=== PATIENT | male | born 1975 | race Caucasian/White ===

== ENCOUNTER → 2016-11-09 | Outpatient (CLI) | payer BC ==
--- NOTE | 2016-11-09 11:29 | CR ---
EXAMINATION: Two-view chest (PA and Lateral views). HISTORY: Hypertension. FINDINGS: The trachea is midline. The cardiomediastinal silhouette is within normal limits. No pulmonary infil trates, effusions or pneumothorax. There is mild left perihilar atelectasis. Osseous structures appear unremarkable. IMPRESSION: No acute cardiopulmonary process.
[2016-11-09 11:31] LABS: CHLORIDE,CL 105 mmol/L (98-110); SODIUM,NA 136 mmol/L (136-146)
== END ==
LOC: MW.CHIM 10:44
PROVIDERS: ATTEND Internal Medicine
DX: I10 Essential (primary) hypertension (principal); J44.9 Chronic obstructive pulmonary disease, unspecified
CPT/HCPCS: 36415; 71020; 80053; 80061; 83036; 84439; 84443; 85025; G0103

== ENCOUNTER 2017-12-23 09:14 | Emergency (ER) | payer BC ==
[2017-12-23] MEDS ORDERED: Ketorolac 60 MG/2 ML SDV IM ONE (09:25)
[2017-12-23] MEDS ORDERED: Cyclobenzaprine 10 MG Tab PO ONE (09:26)
--- NOTE | 2017-12-23 09:28 | EDM.PDOC ---
ED HPI GENERAL MEDICAL PROBLEM - General Chief Complaint: Back Pain or Injury Stated Complaint: HURT HIS BACK Time Seen by Provider: 12/23/17 09:19 Source of Information: Reports: Patient History Limitations: Reports: No Limitations - History of Present Illness INITIAL COMMENTS - FREE TEXT/NARRATIVE: History of present illness: []Patient was weaned off yesterday and felt a sudden pain with an audible pop in his lower back. He took Advil and ice to his back last night. He woke up with worse pain and difficulty moving. Patient denies any radiation of pain, numbness, tingling or urinary or fecal incontinence. Review of systems: As per history of present illness and below otherwise all systems reviewed and negative. Past medical history: As per history of present illness and as reviewed below otherwise noncontributory. Surgical history: As per history of present illness and as reviewed below otherwise noncontributory. Social history: No reported history of drug or alcohol abuse. Family history: As per history of present illness and as reviewed below otherwise noncontributory. Physical exam: General: Well developed, well nourished in NAD HEENT: Atraumatic, normocephalic, pupils reactive, negative for conjunctival pallor or scleral icterus, mucous membranes moist, throat clear, neck supple, nontender, trachea midline. Lungs: Clear to auscultation, breath sounds equal bilaterally, chest nontender. Heart: S1S2, regular, negative for clicks, rubs, or JVD. Abdomen: Soft, nondistended, nontender. Negative for masses or hepatosplenomegaly. Negative for costovertebral tenderness. Pelvis: Stable nontender. Genitourinary: Deferred. Rectal: Deferred. Extremities: Atraumatic, negative for cords or calf pain. Neurovascular unremarkable. Neuro: Awake, alert, oriented. Cranial nerves II through XII unremarkable. Cerebellum unremarkable. Motor and sensory unremarkable throughout. Exam nonfocal. Straight leg raise negative, reflexes intact. Diagnostics: [] Therapeutics: []Toradol, Flexeril, Dilaudid with no relief. IV morphine titrated to comfort given Impression: []Lumbar strain Plan: []Tramadol, Flexeril, ice pack follow-up with primary care return if symptoms worsen Definitive disposition and diagnosis as appropriate pending reevaluation and review of above. Back Pain Score (Numeric/FACES): 6 - Related Data Allergies Allergy/AdvReac Type Severity Reaction Status Date / Time No Known Allergies Allergy Verified 12/23/17 09:22 Home Meds: Home Meds Cyclobenzaprine [Flexeril] 10 mg PO BID PRN #12 tab 12/23/17 [Rx] Phentermine HCl 37.5 mg PO DAILY 12/23/17 [History] Valsartan 40 mg PO DAILY 12/23/17 [History] traMADol HCl [Tramadol HCl] 50 mg PO Q6H PRN #16 tablet 12/23/17 [Rx] ED ROS GENERAL - Review of Systems Review Of Systems: See Below (See history of present illness) ED EXAM,LOWER BACK PAIN/INJURY - Physical Exam Exam: See Below (See history of present illness) Course - Vital Signs Last Recorded V/S: Last Vital Signs Temp 97.7 F 12/23/17 09:23 Pulse 75 12/23/17 12:05 Resp 18 12/23/17 12:05 BP 118/76 12/23/17 12:05 Pulse Ox 95 12/23/17 12:05 - Orders/Labs/Meds Orders: Active Orders 24 hr Category Date Time Status Saline Lock Insert [OM.PC] Stat Oth 12/23/17 10:32 Ordered Meds: Medications Discontinued Medications Generic Name Dose Route Start Last Admin Trade Name Hoseaq PRN Reason Stop Dose Admin Cyclobenzaprine HCl 10 mg 12/23/17 09:26 12/23/17 09:32 Flexeril PO 12/23/17 09:27 10 mg ONETIME ONE Administration Hydromorphone HCl 1 mg 12/23/17 09:57 12/23/17 10:06 Dilaudid IM 12/23/17 09:58 Not Given ONETIME ONE Hydromorphone HCl 1 mg 12/23/17 10:06 12/23/17 10:06 Dilaudid IM 12/23/17 10:07 1 mg ONETIME ONE Administration Hydromorphone HCl Confirm 12/23/17 10:04 12/23/17 10:42 Dilaudid Administered 12/23/17 10:05 Not Given Dose 1 mg .ROUTE .STK-MED ONE Ketorolac Tromethamine 60 mg 12/23/17 09:25 12/23/17 09:31 Toradol IM 12/23/17 09:26 60 mg ONETIME ONE Administration Morphine Sulfate 4 mg 12/23/17 10:44 12/23/17 11:26 Morphine IVPUSH 4 mg Q2H PRN Administration Pain (severe 7-10) Morphine Sulfate Confirm 12/23/17 10:42 12/23/17 10:49 Morphine Administered 12/23/17 10:43 Not Given Dose 4 mg .ROUTE .STK-MED ONE Sodium Chloride 10 ml 12/23/17 10:33 Saline Flush FLUSH ASDIRECTED PRN Keep Vein Open Sodium Chloride 2.5 ml 12/23/17 10:33 Saline Flush FLUSH ASDIRECTED PRN Keep Vein Open Departure - Departure Time of Disposition: 12:05 Disposition: Home, Self-Care 01 Condition: Good Clinical Impression: Lumbar strain Qualifiers: Encounter type: initial encounter Qualified Code(s): S39.012A - Strain of muscle, fascia and tendon of lower back, initial encounter - Discharge Information Prescriptions: Cyclobenzaprine [Flexeril] 10 mg PO BID PRN #12 tab PRN Reason: Pain traMADol HCl [Tramadol HCl] 50 mg PO Q6H PRN #16 tablet PRN Reason: Pain Instructions: Lumbosacral Strain, Low Back Strain Referrals: PCP,None [Primary Care Provider] - Forms: ED Department Discharge Additional Instructions: The following information is given to patients seen in the emergency department who are being discharged to home. This information is to outline your options for follow-up care. We provide all patients seen in our emergency department with a follow-up referral. The need for follow-up, as well as the timing and circumstances, are variable depending upon the specifics of your emergency department visit. If you don't have a primary care physician on staff, we will provide you with a referral. We always advise you to contact your personal physician following an emergency department visit to inform them of the circumstance of the visit and for follow-up with them and/or the need for any referrals to a consulting specialist. The emergency department will also refer you to a specialist when appropriate. This referral assures that you have the opportunity for follow-up care with a specialist. All of these measure are taken in an effort to provide you with optimal care, which includes your follow-up. Under all circumstances we always encourage you to contact your private physician who remains a resource for coordinating your care. When calling for follow-up care, please make the office aware that this follow-up is from your recent emergency room visit. If for any reason you are refused follow-up, please contact the [facility] Emergency Department at and asked to speak to the emergency department charge nurse. [facility] Primary [facility] [place] [id number] - My Orders Last 24 Hours: My Active Orders 12/23/17 10:32 Saline Lock Insert [OM.PC] Stat - Assessment/Plan Last 24 Hours: My Active Orders 12/23/17 10:32 Saline Lock Insert [OM.PC] Stat
[2017-12-23] MEDS ORDERED: HYDROmorphone 2 MG/ML SDV IM ONE (09:57)
[2017-12-23] MEDS ORDERED: HYDROmorphone 1 MG/ML Syringe ONE (10:04)
[2017-12-23] MEDS ORDERED: HYDROmorphone 1 MG/ML Syringe IM ONE (10:06)
[2017-12-23] MEDS ORDERED: Morphine 4 MG/ML Syringe IVPUSH PRN ×2 (10:33→10:43)
[2017-12-23] MEDS ORDERED: Sodium Chloride 0.9% 2.5 ML Syringe FLUSH PRN (10:33)
[2017-12-23] MEDS ORDERED: Sodium Chloride 0.9% 10 ML Syringe FLUSH PRN (10:33)
[2017-12-23] MEDS ORDERED: Morphine 2 MG/ML Syringe ONE (10:42)
[2017-12-23] MEDS: Morphine 2 MG/ML Syringe IVPUSH PRN ×2 (10:48→11:26)
== END 2017-12-23 12:05 | disposition home or self-care (01) ==
LOC: MW.ED 09:14
DX: S39.012A Strain of muscle, fascia and tendon of lower back, initial encounter (principal); X58.XXXA Exposure to other specified factors, initial encounter; Z79.899 Other long term (current) drug therapy
CPT/HCPCS: 96372; 96374; 96376; 99283; A9270; J1170; J1885; J2270